=== PATIENT | male | born 1955 | race Caucasian/White ===

== ENCOUNTER 2018-01-08 05:28 | Day surgery (SDC) | payer OTHER ==
[~2018-01-08] VITALS: Ht 180.3 cm; Wt 106.6 kg
--- NOTE | ~2018-01-08 | O ---
[facility] [place] [address] OPERATIVE REPORT Name: CODI KEARNS Room #: DEP [facility]..#: [id number] Admission: 01/08/18 Attend Phys: Edison Colbert MD Discharge: 01/08/18 Date of : 59 Report #: [id number] THIS REPORT FOR: //name// CC: IVET Colbert DATE OF SERVICE: 01/08/[address] Edison Colbert and Dr. Ivet Small. PREOPERATIVE DIAGNOSIS: Large right incarcerated inguinal scrotal recurrent hernia. POSTOPERATIVE DIAGNOSIS: Large right incarcerated inguinal scrotal recurrent hernia. PROCEDURE: Repair of a large recurrent right inguinal scrotal hernia with Prolene hernia system mesh. SURGEON: Edison Colbert MD ANESTHESIA: Local IV sedation. DESCRIPTION OF PROCEDURE: The patient was brought to the operating room and placed on operative table in the supine position. Sequential compression devices were in place for DVT prophylaxis. There was no indication for preoperative antibiotics. The patient underwent IV sedation. Right inguinal area was prepped and draped in a sterile fashion. Skin and subcutaneous tissue were then infiltrated with 0.5% Marcaine and 1% Xylocaine in a 1:1 mixture. Right inguinal skin incision was then performed using #10 scalpel blade. Hemostasis obtained using electrocautery as well as clamps and 2-0 chromic ties. Dissection was carried down through the subcutaneous tissue, external oblique fascia, which was identified and dissected free from some previous repair of scar tissue. The external oblique fascia was then incised and opened with the Metzenbaum scissors. The cord was dissected free, elevated and held into place with La Rose drain. Cremasteric muscle fibers were then split in the direction of fibers using clamp and electrocautery. A large indirect inguinal hernia sac, which was incarcerated within the cord was dissected free and then reduced back through the internal ring into the preperitoneal space. The floor was inspected and was found to be intact, but was significantly weak and the internal ring was markedly dilated. An extended Prolene hernia system mesh was then inserted through the floor and deployed into the preperitoneal space. The floor was then tightened using a running 2-0 Prolene two layer Bassini repair. The overlay patch was then deployed into the inguinal canal and secured the pubic tubercle with the same running 2-0 Prolene suture. It was also secured superiorly at the [facility] [address] [place] [address] OPERATIVE REPORT Name: CODI KEARNS Room #: DEP [facility]#: [id number] Admission: 01/08/18 Attend Phys: Edison Colbert MD Discharge: 01/08/18 Date of : 59 Report #: [id number] connector using simple interrupted 2-0 Vicryl sutures. The mesh was then split and wrapped around the cord and secured to the inguinal ligament with the 2-0 Vicryl suture. I then also actually attached the overlay patch little laterally to the inguinal ligament with simple interrupted 2-0 Prolene suture. The cord was then returned to the canal intact. The external oblique fascia was then closed using running 2-0 Vicryl suture. Chandana's fascia was then reapproximated using 3 simple interrupted 2-0 chromic sutures and the skin then closed with a running 4-0 subcuticular Vicryl stitch. Wound was then dressed with Mastisol, 1/2-inch Steri-Strips cut in half, Telfa, 4 x 4 gauze, sponge and tape. The patient was then taken to recovery room awake, alert and in good condition. Estimated blood loss was approximately 10 mL and the patient tolerated procedure well. All sponge, lap and instrument counts correct x 2. <ELECTRONICALLY SIGNED> By: Edison Colbert MD 01/08/18 1333 1118 1203 Edison Colbert MD /nt
--- NOTE | ~2018-01-08 | H ---
[facility] [place] [address] HISTORY AND PHYSICAL Name: CODI KEARNS Room #: DEP [facility]..#: [id number] Admission: 01/08/18 Attend Phys: Edison Colbert MD Discharge: 01/08/18 Date of : 59 Report #: [id number] THIS REPORT FOR: //name// CC: Ivet Colbert DATE OF SERVICE: 01/08/2018 CHIEF COMPLAINT: Right groin bulge. HISTORY OF PRESENT ILLNESS: The patient is a 62-year-old white male who noticed that his right testicle was enlarged. He went to see his primary care physician, Dr. Ivet Small, who sent him for a scrotal ultrasound, which confirmed the presence of a large right inguinal hernia. The patient denied any pain. No changes in bowel or bladder habits. He had a normal colonoscopy 10 years ago. Of note, he also in 1967 had removal of a left undescended testicle with placement of a prosthesis in the left hemiscrotum. He was sent for evaluation for a right groin bulge and after full discussion and examination with the patient, he now presents for right inguinal hernia repair. PAST MEDICAL HISTORY: Hypertension, hypercholesterolemia, removal of an undescended left testicle in 1967. MEDICATIONS: Labetalol 200 mg p.o. b.i.d., losartan, potassium/hydrochlorothiazide 100/25 mg 1 tablet p.o. every day, aspirin 81 mg p.o. every day. ALLERGIES: No known drug allergies. FAMILY HISTORY: Noncontributory. SOCIAL HISTORY: , does not smoke, drinks alcohol occasionally. REVIEW OF SYSTEMS: Pertinent positives as above. Full review of systems is otherwise negative. PHYSICAL EXAMINATION: GENERAL: This is a well-developed, well-nourished white male, in no acute distress. VITAL SIGNS: Stable. He is afebrile. Height 71 inches, weight is 235 pounds, BMI of 32.8. HEENT: Sclerae is nonicteric. Mucous membranes are moist and pink. NECK: There is no adenopathy, no thyromegaly. LUNGS: Clear to auscultation bilaterally. Normal excursion. CARDIOVASCULAR: Regular rate and rhythm. No murmurs, S3, S4, no PMI. [facility] [address] [place] [address] HISTORY AND PHYSICAL Name: CODI KEARNS Room #: DEP [facility].#: [id number] Admission: 01/08/18 Attend Phys: Edison Colbert MD Discharge: 01/08/18 Date of : 59 Report #: [id number] ABDOMEN: Obese, soft, flat, nontender, no palpable mass, no organomegaly, no hernias. GENITOURINARY: Normal phallus. The left testicle is small and hard representing the prosthesis. Right testicle is normal. There was a large inguinal scrotal right inguinal hernia, which is partially reducible. There is some tenderness. EXTREMITIES: No clubbing, cyanosis or edema. NEUROLOGIC: Intact with a clear mental status. IMPRESSION: A 62-year-old white male with a large right inguinal scrotal hernia. I fully discussed with the patient the diagnosis, prognosis, and treatment options. I have recommended a right inguinal hernia repair with mesh. He states he understands and agrees to proposed surgery. PLAN: We will perform a right inguinal hernia repair with mesh under local IV sedation as an outpatient at [facility]. The procedures, risks, benefits and possible complications were fully discussed with the patient including the use of mesh. He states he understands and agrees to proposed surgery. <ELECTRONICALLY SIGNED> By: Edison Colbert MD 01/08/18 1333 [id number] 1739 Edison Colbert MD /nt
--- NOTE | ~2018-01-08 | EKG ---
[address] [address] ELECTROCARDIOGRAM REPORT Name: SOMCODI Room #: 150-3 [facility].#: [id number] Admission: 01/08/18 Attend Phys: Edison Colbert MD Discharge: Date of : 59 Report #: [id number] THIS REPORT FOR: //name// [facility] Test Date: 2018-01-08 Test Time: 06:44:04 Pat Name: CODI KEARNS Department: Room: 150 3 Gender: M Appliance Adjuster: FRANCESCA : 1955 Requested By: Lola Kearns Order Number: [id number] MD: Judson Ortega Measurements Intervals [place] Rate: 53 P: -5 [place]: 188 QRS: -24 QRSD: 100 T: 108 QT: 433 QTc: 407 Interpretive Statements Sinus rhythm Borderline left axis deviation Low voltage, precordial leads No previous ECG available for comparison Electronically Signed On 01-08-2018 7:30:58 CDT by Judson Ortega [email or web address] <ELECTRONICALLY SIGNED> By: Judson Ortega MD 01/08/18 0730 D: [id number] Judson Ortega MD /VALERIA
[~2018-01-08 05:28] MED LIST: CHILDREN'S ASPI81 M1 PO; LABETALOL HCL200 MG PO; LOSARTAN-HCTZ1 EAC3 PO
[2018-01-08 07:17] LABS: CREATININE 1.1 mg/dL (0.7-1.3); POTASSIUM 3.7 mmol/L (3.5-5.1)
[2018-01-08 08:06] VITALS: BP 125/72
[2018-01-08] MEDS ORDERED: NORCO 5-325 TA1 EACH PO (11:24)
[2018-01-08 11:29] VITALS: BP 125/72
== END 2018-01-08 12:05 | disposition home or self-care (01) ==
LOC: OR 05:28 → TBA 05:28 → OR 10:08
PROVIDERS: Student in an Organized Health Care Education/Training Program
DX: K40.31 Unilateral inguinal hernia, with obstruction, without gangrene, recurrent (principal); I10 Essential (primary) hypertension; E78.00 Pure hypercholesterolemia, unspecified; Z98.890 Other specified postprocedural states; Z79.899 Other long term (current) drug therapy; Z79.82 Long term (current) use of aspirin; Z79.891 Long term (current) use of opiate analgesic
CPT/HCPCS: 50010; 50101; 50386; 50417; 54111; 56524; 56525; 56526; 56528; 62110; 62900; 70005